=== PATIENT | female | born 1985 | race Caucasian/White ===

== ENCOUNTER 2016-09-06 13:04 | Emergency (ER) | payer BC, OTHER ==
[~2016-09-06] VITALS: Ht 162.6 cm; Wt 119.6 kg
[~2016-09-06 13:04] MED LIST: ALBU1AER9 INH; GLC/500 PO; MTR600X PO; PRENTAB26 PO
[2016-09-06 13:14] VITALS: Ht 162.6 cm; Wt 119.6 kg
[2016-09-06] MEDS ORDERED: LORA10TA5 PO (14:09)
[2016-09-06] MEDS ORDERED: METF-384 PO (14:09)
[2016-09-06] MEDS ORDERED: VNTHFA/IN INH (14:09)
--- NOTE | 2016-09-06 14:09 | EMERGENCY ROOM VISIT NOTE ---
History Report prepared by Carmen: Denise Dominguez Under the Supervision of: Dr. Chandrika Gutierrez D.O. First contact with patient: 13:52 Chief Complaint: ED VAG BLEEDING Stated Complaint: DOC SENT TO ER; EXTREME MENSTRUAL BLEEDING History of Present Illness The patient is a 30 year old female who presents to the Emergency Room with complaints of worsening vaginal bleeding beginning 64 days prior to arrival. The patient states that she has a history of long periods but states she has never experienced one this long with such heavy bleeding. She notes that recently she has been having regular periods. This cycle of menstruation has worsened her PCOS. The patient is experiencing abdominal cramping, fatigue, lightheadedness and dizziness. She notes that she has been going through a tampon or pad every hour. The patient did speak with her doctor last week and was told to come to ED is symptoms worsened. She notes she has been experiencing a very heavy flow these past few days. The patient does have an appointment with [facility] at the end of the week. She is currently not doing any fertility treatments. 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 Review of Systems See HPI for pertinent positives & negatives. A total of 10 systems reviewed and were otherwise negative. Past Medical & Surgical Medical Problems: (1) Asthma (2) polycystic ovary syndrome Family History Cancer Diabetes mellitus Heart disease Hypertension Lung disease Social History Smoking Status: Former Smoker Alcohol Use: none Drug Use: none Marital Status: Housing Status: lives with family Occupation Status: employed Current/Historical Medications Scheduled Loratadine (Claritin), 10 MG PO DAILY Metformin Hcl (Glucophage), 1,000 MG PO BID Scheduled PRN Albuterol Hfa (Ventolin Hfa), 2 PUFFS INH Q6H PRN for SOB/Wheezing Allergies Coded Allergies: Dog Dander (Verified Allergy, Unknown, ITCHING OF EYES, WHEEZING WITH EXCESSIVE EXPOSURE, 01/15/16) Penicillins (Verified Allergy, Unknown, RXN A YOUNG CHILD, 01/15/16) Tomato (Unverified Allergy, Unknown, ITCH, REDNESS, 01/15/16) Physical Exam Vital Signs Date Time Temp Pulse Resp B/P Pulse Ox O2 Delivery O2 Flow Rate FiO2 09/06/16 17:32 65 18 112/89 100 Room Air 09/06/16 17:32 36.7 68 18 135/88 100 09/06/16 13:14 36.7 68 18 135/88 100 Room Air Physical Exam HEENT: Head - normocephalic and atraumatic Pupils are equal, round, and reactive to light. Extraocular eye muscles are intact, and sclera are anicteric. Nose - moist nasal mucosa without discharge. Mouth - moist buccal mucosa. Oropharynx is nonerythematous and there is no tonsillar exudate or edema noted. Neck: Supple; no JVD, nuchal rigidity, cervical lymphadenopathy. Heart: Regular rate and rhythm. There is a normal S1 and S2 with no murmurs, clicks, or gallops appreciated. Lungs: Clear to auscultation bilaterally with no wheezes, rales, or rhonchi. Abdomen: Soft, suprapubic cramping to palpation, nondistended, with good bowel sounds. There are no palpable pulsatile masses or hepatosplenomegaly. There is no guarding, rigidity, or rebound noted. Extremities: No evidence of cyanosis, clubbing, or edema. There are easily palpable peripheral pulses. Skin: Pale, warm and dry with good turgor and no rashes. Medical Decision & Procedures ER Provider Diagnostic Interpretation: US results as stated below per my review and radiologist interpretation: EXAMINATION: PELVIC ULTRASOUND CLINICAL HISTORY: eval dysfunctional uterine bleeding BLEEDING COMPARISON STUDY: 01/15/2016 FINDINGS: The uterus measured 8.5 cm.. The endometrial stripe measured 8.5 mm unchanged in the prior study.. The right ovary measured 2.7 cm maximum dimension with a 1.6 cm ovarian cyst. Normal vascular flow. The left ovary measured 2.9 cm maximum dimension with normal vascular flow. There is no ultrasonographic evidence of ovarian torsion. It should be noted that ovarian torsion can be present with normal Doppler ultrasonographic findings. There was no evidence of pathologic free pelvic fluid. IMPRESSION: Mild endometrial prominence unchanged from the prior study. 1.6 cm right ovarian cyst. Electronically signed by: Bj Jordan M.D. 09/06/2016 4:54 PM Dictated Date/Time: 09/06/2016 4:53 PM Laboratory Results 09/06/16 14:20 Red Blood Count 4.04, Mean Corpuscular Volume 77.0, Mean Corpuscular Hemoglobin 24.0, Mean Corpuscular Hemoglobin Concent 31.2, Mean Platelet Volume 9.8, Neutrophils (%) (Auto) 67.1, Lymphocytes (%) (Auto) 22.5, Monocytes (%) (Auto) 8.1, Eosinophils (%) (Auto) 1.8, Basophils (%) (Auto) 0.5, Neutrophils # (Auto) 4.16, Lymphocytes # (Auto) 1.39, Monocytes # (Auto) 0.50, Eosinophils # (Auto) 0.11, Basophils # (Auto) 0.03 09/06/16 14:20 Test 09/06/16 14:20 White Blood Count 6.19 K/uL (4.8-10.8) Red Blood Count 4.04 M/uL (4.2-5.4) Hemoglobin 9.7 g/dL (12.0-16.0) Hematocrit 31.1 % (37-47) Mean Corpuscular Volume 77.0 fL (80-100) Mean Corpuscular Hemoglobin 24.0 pg (25-34) Mean Corpuscular Hemoglobin Concent 31.2 g/dl (32-36) Platelet Count 384 K/uL (130-400) Mean Platelet Volume 9.8 fL (7.4-10.4) Neutrophils (%) (Auto) 67.1 % Lymphocytes (%) (Auto) 22.5 % Monocytes (%) (Auto) 8.1 % Eosinophils (%) (Auto) 1.8 % Basophils (%) (Auto) 0.5 % Neutrophils # (Auto) 4.16 K/uL (1.4-6.5) Lymphocytes # (Auto) 1.39 K/uL (1.2-3.4) Monocytes # (Auto) 0.50 K/uL (0.11-0.59) Eosinophils # (Auto) 0.11 K/uL (0-0.5) Basophils # (Auto) 0.03 K/uL (0-0.2) RDW Standard Deviation 43.7 fL (36.4-46.3) RDW Coefficient of Variation 15.4 % (11.5-14.5) Immature Granulocyte % (Auto) 0.0 % Immature Granulocyte # (Auto) 0.00 K/uL (0.00-0.02) Anion Gap 6.0 mmol/L (3-11) Est Creatinine Clear Calc Drug Dose 173.3 ml/min Estimated GFR () 142.0 Estimated GFR (Non- 122.5 BUN/Creatinine Ratio 18.6 (10-20) Calcium Level 8.4 mg/dl (8.5-10.1) Human Chorionic Gonadotropin, Qual NEG (NEG) Laboratory results per my review. ED Course 1359: Past medical records reviewed. The patient was evaluated in room A4. A complete history and physical exam was performed. An IV lock was initiated and labs were drawn as above. The patient will go for ultrasound of the pelvis. 1534: The patient is feeling better. She is going to ultrasound. She has an appointment scheduled for tomorrow with [facility]. 1704: I spoke with the patient about her results. 1706: Upon reevaluation, the patient is hemodynamically stable. I discussed findings and results with her. She verbalized agreement of the treatment plan. She was discharged home. Medical Decision The patient is a 30 year old female who presents to the ED with vaginal bleeding. Differential diagnosis includes polycystic ovary disease, dysfunctional uterine bleeding, , anemia, iron deficiency. Lab findings include: normal white blood count, hemoglobin 9.7, MCV 77, negative , normal renal function and glucose. The patient has been having a prolonged menstrual cycle. She has a history of polycystic ovary disease. The patient is not . She does have a history of iron deficiency anemia and has been taking iron. Her MCV is somewhat increased from previous laboratory testing but overall, she is anemic with hemoglobin of 9.7. The patient has a scheduled appointment with her care nurse rn tomorrow. I've asked her to keep this. She is to move slowly because of the lightheadedness and dizziness. Impression Primary Impression: Abnormal uterine bleeding Additional Impression: Anemia Scribe Attestation The scribe's documentation has been prepared under my direction and personally reviewed by me in its entirety. I confirm that the note above accurately reflects all work, treatment, procedures, and medical decision making performed by me. Departure Information Dispostion Home / Self-Care Referrals Cheryl Trinidad (PCP) Forms HOME CARE DOCUMENTATION FORM, IMPORTANT VISIT INFORMATION, WORK / SCHOOL INSTRUCTIONS Patient Instructions Bleeding Uterine, My [facility] Additional Instructions Rest. Move slowly because of dizziness or light-headedness Follow up with Replenishment Merchandising Associate tomorrow Continue taking iron Problem Qualifiers
[2016-09-06 14:30] LABS: BASO % 0.5 %; BASO ABS # 0.03 K/uL (0-0.2); COMPLETE YES; EOS % 1.8 %; HEMATOCRIT 31.1 % (37-47); LYMPH % 22.5 %; LYMPH ABS # 1.39 K/uL (1.2-3.4); MEAN CORPUSCULAR HGB CONC 31.2 g/dl (32-36); MEAN PLATELET VOLUME 9.8 fL (7.4-10.4); MONO % 8.1 %; NEUT % 67.1 %; PLATELET COUNT 384 K/uL (130-400); RED BLOOD COUNT 4.04 M/uL (4.2-5.4); WHITE BLOOD COUNT 6.19 K/uL (4.8-10.8)
[2016-09-06 14:39] LABS: PREG INTERNAL NEGATIVE QC NEG CLEAR BACKGROUND; PREG INTERNAL POSITIVE QC POS CONTROL LINE
[2016-09-06 14:50] LABS: BUN/CREATININE RATIO 18.6 (10-20); CALCIUM 8.4 mg/dl (8.5-10.1); CREATININE 0.61 mg/dl (0.60-1.20); POTASSIUM 3.8 mmol/L (3.5-5.1)
--- NOTE | 2016-09-06 16:56 | DIAGNOSTIC IMAGING REPORT ---
EXAMINATION: PELVIC ULTRASOUND CLINICAL HISTORY: eval dysfunctional uterine bleeding BLEEDING COMPARISON STUDY: 01/15/2016 FINDINGS: The uterus measured 8.5 cm.. The endometrial stripe measured 8.5 mm unchanged in the prior study.. The right ovary measured 2.7 cm maximum dimension with a 1.6 cm ovarian cyst. Normal vascular flow. The left ovary measured 2.9 cm maximum dimension with normal vascular flow. There is no ultrasonographic evidence of ovarian torsion. It should be noted that ovarian torsion can be present with normal Doppler ultrasonographic findings. There was no evidence of pathologic free pelvic fluid. IMPRESSION: Mild endometrial prominence unchanged from the prior study. 1.6 cm right ovarian cyst. Electronically signed by: Bj Jordan M.D. 09/06/2016 4:54 PM Dictated Date/Time: 09/06/2016 4:53 PM
[2016-09-06 17:32] VITALS: BP 112/89; PULSE 65; TEMP 36.7; O2SAT 100
== END 2016-09-06 17:33 | disposition home or self-care (01) ==
LOC: C.EDB 13:07 → C.EDA 17:33
DX: N93.9 Abnormal uterine and vaginal bleeding, unspecified (principal); D50.9 Iron deficiency anemia, unspecified; R42 Dizziness and giddiness; R53.83 Other fatigue; J45.909 Unspecified asthma, uncomplicated; E28.2 Polycystic ovarian syndrome; Z87.891 Personal history of nicotine dependence; Z83.3 Family history of diabetes mellitus; Z82.49 Family history of ischemic heart disease and other diseases of the circulatory system

== ENCOUNTER → 2016-09-07 | Outpatient (CLI) | payer BC, OTHER ==
[~2016-09-07] MED LIST changes: -ALBU1AER9 INH; -GLC/500 PO; +LORA10TA5 PO; +METF-384 PO; -MTR600X PO; -PRENTAB26 PO; +VNTHFA/IN INH
== END | disposition home or self-care (01) ==
LOC: C.LABSPEC 11:27
PROVIDERS: ATTEND Obstetrics & Gynecology
DX: N71.9 Inflammatory disease of uterus, unspecified (principal)

== ENCOUNTER 2017-05-11 00:24 | Emergency (ER) | payer SELFPAY ==
[~2017-05-11] VITALS: Ht 162.6 cm; Wt 87.9 kg
[~2017-05-11 00:24] MED LIST changes: -LORA10TA5 PO; +LORA10TA6 PO
[2017-05-11 00:29] VITALS: Ht 162.6 cm; Wt 87.9 kg
[2017-05-11] MEDS ORDERED: LIDOCAINE HCL 2% VISC SOLN 20 ML UDC MT STA (00:39)
[2017-05-11] MEDS ORDERED: ACETAMINOPHEN 500 MG TAB PO STA (00:39)
[2017-05-11] MEDS ORDERED: SODIUM CHLORIDE 0.9% 1000ML 1,000 ML IV STA (00:39)
[2017-05-11] MEDS ORDERED: KETOROLAC TROMETHAMINE 30 MG/ML VIAL IV STA (00:39)
[2017-05-11 01:10] LABS: BASO % 0.4 %; BASO ABS # 0.03 K/uL (0-0.2); HEMATOCRIT 36.7 % (37-47); HEMOGLOBIN 11.6 g/dL (12.0-16.0); IG# 0.01 K/uL (0.00-0.02); LYMPH % 12.2 %; LYMPH ABS # 1.03 K/uL (1.2-3.4); MEAN CELL VOLUME 75.7 fL (80-100); MEAN CORPUSCULAR HEMOGLOBIN 23.9 pg (25-34); MEAN CORPUSCULAR HGB CONC 31.6 g/dl (32-36); MEAN PLATELET VOLUME 10.5 fL (7.4-10.4); MONO % 11.4 %; MONO ABS # 0.96 K/uL (0.11-0.59); NEUT % 75.9 %; NEUT ABS # 6.39 K/uL (1.4-6.5); PLATELET COUNT 267 K/uL (130-400); RED CELL DISTRIBUTION WIDTH CV 16.2 % (11.5-14.5); RED CELL DISTRIBUTION WIDTH SD 45.1 fL (36.4-46.3); WHITE BLOOD COUNT 8.42 K/uL (4.8-10.8)
[2017-05-11 01:31] LABS: CALCIUM 8.8 mg/dl (8.5-10.1); CREATININE 0.67 mg/dl (0.60-1.20); POTASSIUM 3.3 mmol/L (3.5-5.1)
[2017-05-11 01:42] LABS: INFLUENZA B ANTIGEN Neg for Influ B (NEG)
[2017-05-11 01:52] VITALS: BP 114/57; PULSE 92; TEMP 37.1; O2SAT 96
--- NOTE | 2017-05-11 01:54 | EMERGENCY ROOM VISIT NOTE ---
History First contact with patient: 00:36 Chief Complaint: SORETHROAT Stated Complaint: STREPTHROAT,HIGH FEVER FOR OVER 48 HRS History of Present Illness The patient is a 31 year old female who presents to the Emergency Room with complaints of sore throat, body aches and pains, fever and cough for the past 2 days. Patient went to her family care doctor was given Keflex. They did not do a strep test. Patient has had gastric bypass and cannot take NSAIDs by mouth. She took Tylenol 4 hours ago. Patient denies chest pain, dyspnea, neck stiffness, abdominal pain, vomiting, diarrhea. She did receive the flu shot. Review of Systems See HPI for pertinent positives & negatives. A total of 10 systems reviewed and were otherwise negative. Past Medical/Surgical History Medical Problems: (1) Asthma (2) polycystic ovary syndrome Family History Cancer Diabetes mellitus Heart disease Hypertension Lung disease Social History Smoking Status: Former Smoker Alcohol Use: none Drug Use: none Marital Status: Housing Status: lives with family Occupation Status: employed Current/Historical Medications Scheduled Loratadine (Claritin), 10 MG PO DAILY Metformin Hcl (Glucophage), 1,000 MG PO BID Scheduled PRN Albuterol Hfa (Ventolin Hfa), 2 PUFFS INH Q6H PRN for SOB/Wheezing Physical Exam Vital Signs Date Time Temp Pulse Resp B/P (MAP) Pulse Ox O2 Delivery O2 Flow Rate FiO2 05/11/17 00:32 96 Room Air 05/11/17 00:29 38.1 108 18 118/82 96 Room Air Physical Exam VITALS: Vitals are noted on the nurse's note and reviewed by myself. Vital signs febrile GENERAL: Pleasant female speaking in full sentences maintaining her own secretions, in no acute distress, nondiaphoretic, well-developed well-nourished. SKIN: The skin was without rashes, erythema, edema, or bruising. There is no tenting of the skin. Capillary reflex less than 2 seconds. HEAD: Normocephalic atraumatic. EARS: External auditory canals clear, tympanic membranes pearly bates without erythema or effusion bilaterally. EYES: Pupils equal round and reactive to light and accommodation. Conjunctivae without injection, sclerae without icterus. Extraocular movements intact. NOSE: Patent, turbinates without inflammation or discharge. No sinus tenderness. MOUTH: Mucous membranes moist. Tonsils are enlarged. Pharynx with erythema without exudate. Uvula midline. Airway patent. Tongue does not deviate. No signs of abscess. No signs of airway compromise NECK: Supple without nuchal rigidity. Shoddy anterior cervical lymphadenopathy. No thyromegaly. Cervical spine is nontender. No JVD. HEART: Regular rate and rhythm without murmurs gallops or rubs. LUNGS: Clear to auscultation bilaterally without wheezes, rales or rhonchi. No dullness to percussion. No retractions or accessory muscle use. ABDOMEN: Positive bowel sounds x 4. Normal tympanic percussion. Soft, nontender, without masses or organomegaly. Campos sign negative. No guarding or rebound tenderness. MUSCULOSKELETAL: No muscle atrophy, erythema, or edema noted. NEURO: Patient was alert and oriented to person place and time. Normal sensation to light and sharp touch. No focal neurological deficits. Medical Decision & Procedures Laboratory Results 05/11/17 00:56 Red Blood Count 4.85, Mean Corpuscular Volume 75.7, Mean Corpuscular Hemoglobin 23.9, Mean Corpuscular Hemoglobin Concent 31.6, Mean Platelet Volume 10.5, Neutrophils (%) (Auto) 75.9, Lymphocytes (%) (Auto) 12.2, Monocytes (%) (Auto) 11.4, Eosinophils (%) (Auto) 0.0, Basophils (%) (Auto) 0.4, Neutrophils # (Auto ) 6.39, Lymphocytes # (Auto) 1.03, Monocytes # (Auto) 0.96, Eosinophils # (Auto ) 0.00, Basophils # (Auto) 0.03 05/11/17 00:56 Test 05/11/17 00:56 05/11/17 01:00 White Blood Count 8.42 K/uL (4.8-10.8) Red Blood Count 4.85 M/uL (4.2-5.4) Hemoglobin 11.6 g/dL (12.0-16.0) Hematocrit 36.7 % (37-47) Mean Corpuscular Volume 75.7 fL (80-100) Mean Corpuscular Hemoglobin 23.9 pg (25-34) Mean Corpuscular Hemoglobin Concent 31.6 g/dl (32-36) Platelet Count 267 K/uL (130-400) Mean Platelet Volume 10.5 fL (7.4-10.4) Neutrophils (%) (Auto) 75.9 % Lymphocytes (%) (Auto) 12.2 % Monocytes (%) (Auto) 11.4 % Eosinophils (%) (Auto) 0.0 % Basophils (%) (Auto) 0.4 % Neutrophils # (Auto) 6.39 K/uL (1.4-6.5) Lymphocytes # (Auto) 1.03 K/uL (1.2-3.4) Monocytes # (Auto) 0.96 K/uL (0.11-0.59) Eosinophils # (Auto) 0.00 K/uL (0-0.5) Basophils # (Auto) 0.03 K/uL (0-0.2) RDW Standard Deviation 45.1 fL (36.4-46.3) RDW Coefficient of Variation 16.2 % (11.5-14.5) Immature Granulocyte % (Auto) 0.1 % Immature Granulocyte # (Auto) 0.01 K/uL (0.00-0.02) Anion Gap 8.0 mmol/L (3-11) Est Creatinine Clear Calc Drug Dose 131.8 ml/min Estimated GFR () 136.7 Estimated GFR (Non- 118.0 BUN/Creatinine Ratio 13.9 (10-20) Calcium Level 8.8 mg/dl (8.5-10.1) Influenza Type A Antigen Neg for Influ A (NEG) Influenza Type B Antigen Neg for Influ B (NEG) Medications Administered Medications (Trade) Dose Ordered Sig/David Route Start Time Stop Time Status Last Admin Dose Admin Sodium Chloride 1,000 ml @ 999 mls/hr Q1H1M STAT IV 05/11/17 00:39 05/11/17 01:39 DC 05/11/17 01:06 999 MLS/HR Ketorolac Tromethamine (Toradol Inj) 30 mg NOW STAT IV 05/11/17 00:39 05/11/17 00:42 DC 05/11/17 01:06 30 MG Acetaminophen (Tylenol Tab) 1,000 mg NOW STAT PO 05/11/17 00:39 05/11/17 00:42 DC 05/11/17 01:06 1,000 MG Lidocaine HCl (Viscous Lidocaine 2% Soln) 10 ml NOW STAT MT 05/11/17 00:39 05/11/17 00:42 DC 05/11/17 01:06 10 ML ED Course Prior records/ancillary studies reviewed. Triage Nursing notes reviewed. Additional history obtained from friend The patient's history was concerning for a fever, cold symptoms and sore throat. Differential diagnosis: Etiologies such as viral syndrome, tonsillitis, streptococcal pharyngitis, mononucleosis, peritonsillar abscess, retropharyngeal abscess, otitis, pneumonia , influenza, as well as others were entertained. ER treatment provided: Tylenol, IV fluids, Toradol, viscous lidocaine On reassessment the patient felt better. Diagnostics interpreted by me: The labs revealed mild anemia. Negative flu. Negative strep test and sent for culture Imaging studies: Chest x-ray with no acute consolidation, pneumothorax or free air per my interpretation. This appears to be consistent with pharyngitis who had a negative strep test. Patient was neurovascularly and neurologically intact. No signs of airway compromise. No signs of meningitis. She is advised to take medicines as directed, rest, stay well-hydrated and to follow-up family care in a few days or here in the ER sooner for high fevers, lethargy, neck stiffness, worsening signs or symptoms or as needed. By the evaluation outlined above emergent etiologies such as peritonsillar abscess, retropharyngeal abscess, otitis, pneumonia, meningitis, urinary tract infection, sepsis, bacteremia, as well as others were deemed relatively unlikely. The pt informed about the findings as listed above. All questions were answered and pleased with the treatment. Return instructions were outlined and the patient was discharged in stable condition. Referral: The patient was referred back to their primary care physician for follow-up in 2 to 3 days for a recheck of the current condition. Case reviewed with my attending Medical Decision As above Medication Reconcilliation Current Medication List: was personally reviewed by me Blood Pressure Screening Patient's blood pressure: Normal blood pressure Impression Primary Impression: Influenza Additional Impression: Pharyngitis Departure Information Dispostion Home / Self-Care Condition GOOD Referrals No Doctor, Assigned (PCP) Patient Instructions My [facility] Additional Instructions Acetaminophen(Tylenol) may be used for fever or pain. Use 1000mg every six hours as needed. Avoid using more than 3000mg in a 24 hour period. Afrin nasal spray: 2-3 sprays to each nostril twice daily as needed for congestion. Do not use for more than 3-4 days because it can lead to worsening rebound congestion. Pseudoephedrine(Sudaphed): 30-60mg every 6 hours as needed for nasal congestion. Do not take this with other stimulant products or supplements. Albuterol Inhaler: Take 2 puffs four times daily for seven days, then as needed. Rest and drink plenty of fluids. Controlling your fever with Tylenol and Ibuprofen as above will make you feel better. Wash your hands after nose blowing, sneezing, or coughing. Most germs are spread through contact, therefore improper hygiene may result in your close contacts and loved ones becoming ill just like you. Continue current medications. Return to the ER for severe headache, neck stiffness, chest pain, difficulty breathing, fevers, vomiting, worsening of your condition, or as needed. Follow up with your primary physician this week for a recheck of your current condition. Problem Qualifiers
[2017-05-11] MEDS ORDERED: LIDO2SOL19 PO (01:56)
[2017-05-11] MEDS ORDERED: ALBUTEROL HFA 8 GM INHALER INH STA (01:57)
[2017-05-11] MEDS ORDERED: PEDICHW50 PO (02:00)
[2017-05-11] MEDS ORDERED: CYNI1000 INJ (02:00)
[2017-05-11] MEDS ORDERED: CALC-20 PO (02:01)
--- NOTE | 2017-05-11 06:47 | DIAGNOSTIC IMAGING REPORT ---
CHEST 2 VIEWS ROUTINE CLINICAL HISTORY: cough/fever dyspnea COMPARISON STUDY: 01/22/2013 FINDINGS: The bones soft tissues and hemidiaphragms are normal. The cardiomediastinal silhouette is normal. The lungs are clear. The pulmonary vasculature is normal. IMPRESSION: Negative chest. The above report was generated using voice recognition software. It may contain grammatical, syntax or spelling errors. Electronically signed by: Bj Jordan M.D. 05/11/2017 6:46 AM Dictated Date/Time: 05/11/2017 6:46 AM
== END 2017-05-11 02:05 | disposition home or self-care (01) ==
LOC: C.EDB 00:25
DX: J11.1 Influenza due to unidentified influenza virus with other respiratory manifestations (principal); J02.9 Acute pharyngitis, unspecified; Z98.84 Bariatric surgery status; J45.909 Unspecified asthma, uncomplicated; E28.2 Polycystic ovarian syndrome; F17.200 Nicotine dependence, unspecified, uncomplicated; Z79.84 Long term (current) use of oral hypoglycemic drugs; Z83.3 Family history of diabetes mellitus; Z82.49 Family history of ischemic heart disease and other diseases of the circulatory system